=== PATIENT | female | born 2000 | race African-American/Black ===

== ENCOUNTER → 2025-06-17 | Outpatient (CLI) | payer OTHER ==
[2025-06-17 15:53] LABS: PLATELET COUNT, AUTOMATED 238 10^3/uL (150-450)
[2025-06-17 16:55] LABS: HIV 1&2 SCREEN NEGATIVE (NEGATIVE)
[2025-06-17 17:00] LABS: Trichomonas vaginalis (AMP) NOT DETECTED (NEGATIVE)
[2025-06-17 17:04] LABS: HEPATITIS C VIRUS ABY INDEX < 0.02 INDEX (<0.8)
[2025-06-17 17:24] LABS: GC DNA AMPLIFICATION NEGATIVE (NEGATIVE)
== END ==
LOC: M PLALAB 13:55
PROVIDERS: ATTEND Specialist
DX: Z34.01 Encounter for supervision of normal first pregnancy, first trimester (principal)